=== PATIENT | male | born 1990 | race Asian ===

== ENCOUNTER 2021-08-28 16:04 | Outpatient (CLI) | payer OTHER ==
--- NOTE | 2021-08-28 17:12 | MRI Report ---
PROCEDURE: Knee RT W/O INDICATIONS: KNEE PAIN TECHNIQUE: Noncontrast sagittal PD fast spin echo and T2 fast spin echo with fat saturation, sagittal 3-D gradie nt sequence with fat saturation; coronal T1 spin echo and PD fast spin echo with fat saturation, and axial PD fast spin echo with fat saturation through the knee. COMPARISON: None. FINDINGS: Image quality: Excellent. Menisci: The medial and lateral menisci demonstrate normal morphology and internal signal. The meni scal root ligaments appear intact. Cruciate ligaments: The anterior and posterior cruciate ligaments appear intact. Medial structures: Low-grade proximal MCL sprain is seen near its femoral insertion.. The posterior oblique ligament, semimembranosus tendon insertions, and oblique popliteal ligament, and meniscocapsu lar junction appear intact. Visualized portions of the pes anserinus tendons appear normal. No abno rmal bursal fluid. Lateral structures: The lateral collateral ligament, long and short heads of the biceps femoris tend on appear intact. The popliteus tendon appears normal; the popliteofibular ligament appears intact. The posterosuperior and anteroinferior popliteomeniscal fascicles appear intact. The arcuate and fa bellofibular ligaments appear intact, around the lateral inferior geniculate artery. Iliotibial band appears normal. Anterior structures: The quadriceps and patellar tendons appear intact. Patellar alignment is sammi l. No femoral trochlear dysplasia or ventral trochlear prominence. No edema in the infrapatellar fa t pad. Bones and cartilage: No bone marrow contusions or fractures. The cartilage of the medial and latera l femorotibial compartments, as well as the patellofemoral compartment, appears normal in thickness. Joint space: There is small amount of joint fluid. No Ferguson's cyst. Normal appearing synovial plic ae are incidentally noted. IMPRESSION: 1. Small amount of joint fluid, no gross loose bodies. No marrow edema. No fracture or dislocation. A rticulating cartilages are intact. 2. No evidence of focal meniscal tear. 3. Low-grade proximal MCL sprain. Cruciate ligaments are intact. Reviewed by: Sean Perez MD on 08/28/2021 5:10 PM PDT Approved by: Sean Perez MD on 08/28/2021 5:10 PM PDT Station ID: [id number]
== END 2021-08-28 16:05 | disposition home or self-care (01) ==
LOC: DI 16:04
PROVIDERS: ATTEND Student in an Organized Health Care Education/Training Program
DX: S83.411A Sprain of medial collateral ligament of right knee, initial encounter (principal); M25.461 Effusion, right knee

== ENCOUNTER 2022-05-28 13:18 | Outpatient (CLI) | payer OTHER ==
[2022-05-28 18:23] VITALS: BP 116/72
--- NOTE | 2022-05-28 18:23 | SLEEP CARE CONSULTATION ---
Information from patient questionnaire entered by Pancho Lawrence. I have reviewed and concur with the information entered by Pancho Lawrence. This document represents the service I personally performed and the decisions made by me, Malik Mendez MD, [facility]. History of Present Illness Service Date and Time: 05/28/2022 1318 Reason for Visit: New patient Chief Complaint: reports: Snoring, Frequent awakenings at night Date of Onset: 8-12MONTHS Usual bedtime: 10-11PM Time it takes to fall asleep: 30-60MIN Snores at night: Yes Observed to quit breathing while asleep: No Number of times waking at night: 1-2 SOMEDAYS UP TO 3 Reasons for waking at night: reports: Snoring, Gasping for air, Other (UNKNOWN REASONS ) Toss, Turn, or Twitch while sleeping: Yes Recalls having dreams: Yes Usually gets out of bed at: 445-7AM Feels refreshed in the morning: No Morning headache: No Sleepy or fatigued during the day: Yes Ever fallen asleep while driving: No Takes day naps: No Dreams during day naps: Yes Prior sleep studies: No Additional HPI information: I had the pleasure of seeing Mr. Means today regarding the possibility of him having a sleep disorder. As you know, he is a 32-year-old gentleman who complains of frequent awakenings and loud snore for about a year. The patient tells me that he normally goes to bed around 10 - 11 pm, and it takes him approximately 30 - 60 minutes to fall asleep. He has been told that he snores loudly and irregularly at night. He has never been observed to stop breathing in his sleep. He is single and sleeps alone. He can recall waking up on the average of 1 - 2 times during the night. Most of the time he wakes up because of his own snoring, choking, and having to gasp for air. There is a lot of tossing and turning in his sleep. He has somniloquy (sleep talking) but not somnambulism (sleep walking). Generally, he can recall having dreams. In the morning he usually gets up out of the bed around 4:45 - 7 a.m. not feeling refreshed nor rested. He usually does not have a morning headache. During the day he complains of feeling l sleepy and fatigued. His score on Metter Sleepiness Scale is 12 out of 24. He has fallen asleep while driving on long drives. He usually does not take naps during the day. He has had sleep paralysis. He denies having impaired concentration during the day. - Parasomnia Symptoms Ever been unable to move upon waking from sleep: Yes Walks in sleep: No Talks in sleep: Yes Ever felt weak in the knees when startled or emotional: No Bothered by creepy, crawly, restless sensations in legs: Yes Problems with memory or concentration: No Subjective Initial [place] Sleepiness Scale score: 12 (05/28/22) Social History The patient's occupation is a AM. Patient is Single and lives in . Have you smoked in the past 12 months: No Alcohol use: Yes Alcohol amount and frequency: 3BEERS EVERY 2 WEEKS OR MONTHLY Caffeine use: Yes Caffeine amount and frequency: 8-16OZ DAILY Family History Family history of sleep disordered breathing: Yes Family Hx Sleep Apnea: Mother: Snoring Allergies and Home Medications Drug allergies reviewed: Yes Home medication list reviewed: Yes (none) Review of Systems Weight gain over past 5 years: 34 Cardiovascular: denies: high blood pressure, palpitations, chest pain, irregular heart rate or pulse, leg or foot swelling, have to sleep sitting up, other Respiratory: denies: shortness of breath, wheeze, sputum production, chronic cough, other Gastrointestinal: denies: heartburn, difficulty swallowing, nausea, vomitting, diarrhea, abdominal pain, other Urinary: denies: incontinence, frequency, urgency, impotence, other Neurological: denies: headaches, seizure, head trauma, disorientation, speech dysfunction, gait or balance problems, fainting or unconsciousness, other Psychiatric: denies: Attention Deficit Hyperactivity, anxiety, depression, mood disorder, claustrophobia, other Ear/Nose/Throat: denies: nasal congestion, sinus problems, nose bleeds, dry mouth/throat, hoarseness, injury to nose, tonsillectomy, wisdom teeth removed, other Endocrine: denies: thyroid disease, history of goiter, sluggishness, too hot or cold, excessive thirst, increased appetite, increased urination, unexplained weakness, other Musculoskeletal: reports: joint pain Immunologic: denies: sneezing, rash, itching, allergies to food or environment, other Physical Exam Vital signs obtained and entered by: PANCHO Garcia MA Blood Pressure: 116/72 (LEFT ARM) Cuff size: regular Heart Rate: 68 O2 Saturation: 97 Height: 5 ft 6 in Weight: 217 lb 6.4 oz Body Mass Index: 35.1 BMI Classification: Obese Neck circumference: 16.75 Mood/affect: Normal HEENT: No craniofacial malformation Nostrils: patent to airflow Turbinates: normal Septum: midline Mouth and throat: normal Soft palate: normal Hard palate: normal Uvula: normal, long Uvula visualization: 25% Mallampati Class III Tongue: normal in size Tonsils: small Chin and jaw: normal size and position Neck: normal w/o lymphadenopathy or thyromegaly Heart: regular rate and rhythm Lungs: clear bilaterally Abdomen: soft, non-tender, other: Extremities: no edema or clubbing Neurologic: intact, no focal deficits Impression and Plan IMPRESSION: 1. Obstructive Sleep Apnea-Hypopnea Syndrome, as suggested by history of loud and irregular snoring, frequent awakenings during the night, unrefreshed sleep, and daytime hypersomnolence. Narrow oropharynx and obesity are common predisposing factors for obstructive sleep apnea-hypopnea syndrome. I recommend proceeding to polysomnography to confirm the diagnosis and to assess severity. I informed the patient of what the sleep studies involve and after some discussion, he agreed to proceed. Plan: 1. Schedule polysomnography and return in 1 to 2 weeks after the study to discuss result and initiate therapy. 2. Avoid long distance driving or when feeling sleepy. 3. Avoid alcohol, sedative and muscle relaxant around bedtime. 4. Attempt to lose weight. Counseling Topics: Weight control Follow up with Sleep Care in: 1-2 months Visit Type: In Office Time Spent with Patient (minutes): 15 Provider Statement: I spent 100% of the Face to Face Visit with the patient with greater than 50% spent counseling the patient and coordination of care.
== END 2022-05-28 13:19 | disposition home or self-care (01) ==
LOC: SC 13:18
PROVIDERS: ATTEND Internal Medicine Pulmonary Disease
DX: R06.83 Snoring (principal); G47.10 Hypersomnia, unspecified; G47.8 Other sleep disorders; E66.9 Obesity, unspecified; Z68.35 Body mass index [BMI] 35.0-35.9, adult
CPT/HCPCS: 99202; 99212

== ENCOUNTER 2022-06-26 19:04 | Outpatient (CLI) | payer OTHER | END 2022-06-26 19:05 | disposition home or self-care (01) | LOC: SC 19:04 | PROVIDERS: ATTEND Internal Medicine Pulmonary Disease | DX: G47.33 Obstructive sleep apnea (adult) (pediatric) (principal); E66.9 Obesity, unspecified; Z68.35 Body mass index [BMI] 35.0-35.9, adult | CPT/HCPCS: 95810 ==

== ENCOUNTER 2023-07-26 10:33 | Outpatient (CLI) | payer OTHER ==
--- NOTE | 2023-07-26 10:58 | Sleep Patient Instructions ---
Sleep Center Visit Summary - Patient Visit Information Reason for Visit: Annual follow-up - Patient Instructions Additional Instructions: You are to start Positional therapy to control your sleep apnea. You may obtain positional belts or other commercial devices online. You may also use pillows to position yourself on your side or a T shirt with balls sewn into the back to help keep you on your side to sleep. We would like to follow up with you in a month to check effectiveness of therapy. We will have you follow up in 1-2 months to check on effectiveness of therapy. - Clinic Information Contact: [facility] [address] [place] [address] [email or web address] T: [phone]
--- NOTE | 2023-07-26 11:04 | SLEEP CARE CONSULTATION ---
Information from patient questionnaire entered by Lexii Lawrence. I have reviewed and concur with the information entered by Lexii Lawrence. This document represents the service I personally performed and the decisions made by , Tavia Bishop ARNP. History of Present Illness Service Date and Time: 07/26/2023 1033 Initial [place] Sleepiness Scale score: 12 (05/28/22) Current [place] Sleepiness Scale score: 16 (07/26/23) Additional HPI information: CHASTITY STEIN was diagnosed to have mild, AHI 7.4, obstructive sleep apnea- hypopnea syndrome as documented on 06/26/22 and returned today for annual follow- up. 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 I explained the pathophysiology behind obstructive sleep apnea. We then spent quite a bit of time discussing different treatment options. For mild obstructive sleep apnea, surgery and oral appliance are alternatives to nasal CPAP therapy but in moderate or severe cases, nasal CPAP is the most effective and reliable treatment. Because apnea is primarily in supine position, then positional management therapy could be effective. Methods discussed such as positioning with pillows, using a T-shirt with tennis balls in the back, and shown commercial products that have a pillow format on back to prevent supine sleep. I reviewed the impact of weight changes on sleep apnea and strongly recommended losing weight. After some discussion, the patient opted to go with positional therapy. Patient counseled not drink alcohol less than 4 hours before bedtime as it can increase snoring and apnea. Patient was cautioned about risks of drowsy driving until sleepiness symptoms resolve. Patient denies drowsy driving. Sleep Study - Results Type of Sleep Study: Polysomnography ([facility] F/U 06/26/22) Prior sleep studies: No Polysomnography/Home Sleep Study results: IMPRESSION: The quality of the study is good. The patient had normal sleep efficiency. The sleep architecture was abnormal for sleep fragmentation and reduced amount of time spent in REM sleep. Respiratory monitoring showed mild obstructive sleep apnea-hypopnea (AHI = 7.4) associated with frequent arousals, oxyhemoglobin desaturation and mild hypoxia (satya oxygen saturation of 85%). The respiratory events occurred almost exclusively during supine sleep (supine AHI = 8.4; non-supine = 4.18). Snore was moderate to loud in intensity. There was no significant periodic leg movement of sleep. Cardiac rhythm was normal sinus rhythm without significant arrhythmia. No abnormal behavior (parasomnia) observed during the night. Allergies and Home Medications Known drug allergies: No Drug allergies reviewed: Yes Home medication list reviewed: Yes (no changes) Allergy and home medication list: Allergies No Known Drug Allergies Allergy (Verified 05/28/22 13:47) Review of Systems Review of systems same as previous: Yes (no changes) Physical Exam Vital signs obtained and entered by: LEXII Garcia MA Blood Pressure: 118/72 (LEFT ARM) Cuff size: regular Heart Rate: 68 O2 Saturation: 97 Height: 5 ft 6 in Weight: 236 lb 6.4 oz Body Mass Index: 38.1 BMI Classification: Obese Impression and Plan 1. Obstructive Sleep Apnea-Hypopnea Syndrome, mild, as seen in last sleep study dated 06/26/2022. Obviously this is the cause of the patients symptoms of unrefreshed sleep, and excessive daytime sleepiness. Since patients apnea is primarily in supine position, patient advised to try positional therapy and agreed with plan. He is also advised to lose weight as this will reduce snoring and apnea. Follow up is scheduled in 1-2 months to check effectiveness and sustainability. He was advised to try to lose weight. Risks of drowsy driving discussed in detail and patient advised to avoid long distance driving and to last puller at the first sign of drowsiness. Patient agreed to plan. 2. Obesity, unspecified. Currently patients BMI is 38.1. Obesity increases the risk of apnea, CPAP pressure requirements and overall health risks especially cardiovascular and diabetes. Thus patient is advised to lose weight. * Positional therapy * Attempt to lose weight. * Avoid alcohol consumption near bedtime. * Avoid supine sleep. * The patient is again cautioned about driving until sleepiness completely resolves. * Return in 1-2 months. I will assess response to therapy at that time. Counseling Topics: Weight loss health impact Follow up with Sleep Care in: 1-2 months (Positional therapy) Visit Type: In Office Time Spent with Patient (minutes): 20 Provider Statement: I spent 100% of the Face to Face Visit with the patient with greater than 50% spent counseling the patient and coordination of care.
[2023-07-26 11:13] VITALS: BP 118/72; O2SAT 97
== END 2023-07-26 10:34 | disposition home or self-care (01) ==
LOC: SC 10:33
PROVIDERS: ATTEND Nurse Practitioner Family
DX: G47.33 Obstructive sleep apnea (adult) (pediatric) (principal); E66.9 Obesity, unspecified; Z68.38 Body mass index [BMI] 38.0-38.9, adult
CPT/HCPCS: 99212; 99213

== ENCOUNTER 2023-09-13 11:10 | Outpatient (CLI) | payer OTHER ==
--- NOTE | 2023-09-13 11:33 | Sleep Patient Instructions ---
Sleep Center Visit Summary - Patient Visit Information Reason for Visit: 7-week positional therapy follow-up - Patient Instructions Additional Instructions: You were here for follow up of Positional therapy. You will be started on CPAP therapy with pressure at 4-15 cmH2O. Please let us know if the pressure is uncomfortable and we can make further adjustments of the pressure. You will need to call the sleep care office to set up your follow up once you have your CPAP machine to check compliance and response to therapy at that time. You may call the office with any concerns about pressure feeling too low or too much for adjustment, if needed. You should contact DME supplier for any questions or concerns about mask or equipment. Please call office to schedule a follow up appointment in the sleep care office one month after obtaining new device. - Clinic Information Contact: [facility] [address] [place] [address] [email or web address] T: [phone]
--- NOTE | 2023-09-13 11:39 | SLEEP CARE CONSULTATION ---
Information from patient questionnaire entered by Lexii Lawrence. I have reviewed and concur with the information entered by Lexii Lawrence. This document represents the service I personally performed and the decisions made by me, Tavia Bishop ARNP. History of Present Illness Service Date and Time: 09/13/2023 1110 Previous diagnosis: Mild, Obstructive Sleep Apnea-Hypopnea Syndrome AHI: 7.4 (06/26/22) Reason for follow up: other (7 WEEK POSITIONAL) Prior sleep studies: No Type of Sleep Study: Polysomnography (06/26/22 [facility]) HPI additional information: CHASTITY STEIN was diagnosed to have mild, AHI 7.4, obstructive sleep apnea- hypopnea syndrome and returned today for Positional therapy seven week follow- up. Sleep Study - Results Prior sleep studies: No CPAP Compliance Data Compliance data discussion: He is using pillows behind his back and will mostly stay on his side but occasionally will find himself on his back. Subjective On therapy, patient: reports: sleeping better, awakening more refreshed (more but some days feel tired), more rested overall. denies: drowsiness while driving Initial [place] Sleepiness Scale score: 12 (05/28/22) Current [place] Sleepiness Scale score: 15 Allergies and Home Medications Known drug allergies: No Drug allergies reviewed: Yes Home medication list reviewed: Yes (no changes) Allergy and home medication list: Allergies No Known Drug Allergies Allergy (Verified 09/11/23 11:01) Review of Systems Review of systems same as previous: Yes (no changes) Physical Exam Vital signs obtained and entered by: TAVIA PRETTY Blood Pressure: 150/85 Cuff size: long (right arm) Heart Rate: 58 O2 Saturation: 99 Height: 5 ft 6 in Weight: 228 lb 9.6 oz Weight change since last visit: 8 lb loss Body Mass Index: 36.8 BMI Classification: Obese Impression and Plan 1. Obstructive Sleep Apnea-Hypopnea Syndrome, mild. Using positional therapy, the patient feels he is having some better sleep quality and is sometimes feeling rested in the morning. His [place] is still elevated at 15/24. We discussed trying the CPAP to see if he has more improvement over the positional therapy and he agreed. The patient will be started on nasal autoCPAP therapy with pressure set at 4-15 cmH2O. A manual titration study will be completed if unable to find optimal treatment pressure with office adjustments. Compliance guidelines also reviewed. A copy of compliance guidelines will be given for reference at check out. Because the apnea is more severe supine, I instructed him to continue to avoid sleeping supine using pillow positioning until able to start CPAP use. Patient's apnea severity and rationale for treatment to reduce apnea, improve sleep quality and reduce cardiovascular and cerebrovascular events was reviewed. 2. Obesity, unspecified. Currently patients BMI is 36.8. He has lost weight. Obesity increases the risk of apnea and overall health risks especially cardiovascular and diabetes. Thus patient is advised to continue to try to lose weight. * Continue positional therapy until able to start using CPAP * Nasal auto CPAP therapy, pressure at 4-15 cm H2O. * Continue to try to lose weight. * Avoid alcohol consumption near bedtime. * Avoid supine sleep until using CPAP. * The patient is again cautioned about driving until sleepiness completely resolves. * Return one month after CPAP obtained. I will assess response to therapy and compliance at that time. Counseling Topics: Sleeping position, Weight loss health impact Prescriptions: Auto CPAP Plan: start CPAP and compliance follow up Visit Type: In Office Time Spent with Patient (minutes): 22 Provider Statement: I spent 100% of the Face to Face Visit with the patient with greater than 50% spent counseling the patient and coordination of care.
[2023-09-13 11:45] VITALS: BP 150/85; O2SAT 99
== END 2023-09-13 11:11 | disposition home or self-care (01) ==
LOC: SC 11:10
PROVIDERS: ATTEND Nurse Practitioner Family
DX: G47.33 Obstructive sleep apnea (adult) (pediatric) (principal); E66.9 Obesity, unspecified; Z68.36 Body mass index [BMI] 36.0-36.9, adult
CPT/HCPCS: 99212; 99213